=== PATIENT | female | born 1960 | race Caucasian/White ===

== ENCOUNTER → 2019-04-10 | Outpatient (CLI) | payer OTHER ==
[~2019-04-10] MED LIST: CARV25TA79 PO; Calcium Carbonate PO; DOCU-144 PO; HYDR-3498 PO; LEVO75TA84 PO; LOSA50TA14 PO; MECL-77 PO
== END | disposition home or self-care (01) ==
LOC: LAB 10:04
PROVIDERS: ATTEND Nuclear Medicine Nuclear Cardiology
DX: R94.39 Abnormal result of other cardiovascular function study (principal); R06.02 Shortness of breath
CPT/HCPCS: 80048

== ENCOUNTER → 2019-04-22 | Outpatient (CLI) | payer OTHER ==
[~2019-04-22] MED LIST changes: +IOHEXOL 100 ML ONE; +METOPROLOL 5 MG INJ ONE; +NITROGLYCERIN AEROSOL (4.9 GM) ONE; +SOD CHLORIDE 0.9% 100 ML ONE
== END | disposition home or self-care (01) ==
LOC: C/S 09:19
PROVIDERS: ATTEND Nuclear Medicine Nuclear Cardiology
DX: I27.0 Primary pulmonary hypertension (principal); R93.1 Abnormal findings on diagnostic imaging of heart and coronary circulation; R07.9 Chest pain, unspecified; R06.02 Shortness of breath
CPT/HCPCS: 75571; 75574; Q9967; Z7610